=== PATIENT | female | born 1995 | race Caucasian/White ===

== ENCOUNTER 2020-10-18 13:25 | Emergency (ER) | payer SELFPAY ==
[~2020-10-18] VITALS: Ht 160 cm; Wt 63.5 kg
[2020-10-18 13:38] VITALS: BP 118/69
--- NOTE | 2020-10-18 13:38 | NUR ---
PATIENT CAME IN STATING "I have severe abdominal Pain +N/V/D". AOX4, NO SOB NOTED, C/O ACHING ABDOMINAL PAIN 10/10, NO S/O ANY ACUTE DISTRESS NOTED. MAKE COMFORTABLE IN BED. WILL CONTINUE TO MONITOR
--- NOTE | 2020-10-18 13:51 | NUR ---
PIV IN R-wrist G#20, GOOD BLOOD RETURN NOTED, INTACT, PATENT AND FLUSHING WELL. PT TOLERATED WELL. WILL CONTINUE TO MONITOR
--- NOTE | 2020-10-18 13:55 | NUR ---
damion draw and urine send to lab
[2020-10-18] MEDS ORDERED: ONDANSETRON HCL/PF 4 MG/2 ML VIAL ONE (13:59)
[2020-10-18] MEDS ORDERED: ONDANSETRON HCL/PF 4 MG/2 ML VIAL IVP ONE (14:00)
[2020-10-18] MEDS ORDERED: IV NS 0.9% 1,000 ML BAG IV ONE (14:00)
[2020-10-18 14:01] LABS: BASOPHILS % (AUTO) 0.3 % (0.0-2.0); EOSINOPHILS % (AUTO) 0.5 % (0.0-6.0); HEMATOCRIT 36 % (33-45); HEMOGLOBIN 11.8 g/dL (11.5-14.8); LYMPHOCYTES # (AUTO) 1.9 K/uL (0.8-4.8); LYMPHOCYTES % (AUTO) 20.2 % (20.0-44.0); MEAN CORPUSCULAR HGB CONC 32 g/dl (31.0-36.0); MEAN CORPUSCULAR VOLUME 84 fL (82-100); MONOCYTES # (AUTO) 0.6 K/uL (0.1-1.30); MONOCYTES % (AUTO) 6.6 % (2.0-12.0); NEUTROPHILS # (AUTO) 6.6 K/uL (1.8-8.9); NEUTROPHILS % (AUTO) 72.4 % (43.0-81.0); PLATELET COUNT (AUTO) 300 K/uL (150-450); RED BLOOD CELL COUNT(AUTO) 4.34 MIL/uL (4.0-5.2); WHITE BLOOD COUNT (AUTO) 9.2 K/uL (4.3-11.0)
[2020-10-18 14:01] LABS: BILIRUBIN,URINE NEGATIVE (NEGATIVE); COLOR,URINE YELLOW (YELLOW); LEUKOCYTE ESTERASE ,URINE TRACE (NEGATIVE); NITRITE, URINE NEGATIVE (NEGATIVE); PROTEIN,URINE NEGATIVE (NEGATIVE); UGLUCOSE NEGATIVE (NEGATIVE); UROBILINOGEN,URINE 0.2 EU/dL (0.2)
[2020-10-18 14:09] LABS: BACTERIA,URINE 2+ /HPF (None Seen)
[2020-10-18 14:10] LABS: SQUAMOUS EPITHELIAL CELL,UR Many /HPF (None Seen)
[2020-10-18 14:21] LABS: CALCIUM, SERUM 8.6 mg/dL (8.5-10.1); CREATININE 0.6 mg/dL (0.6-1.3); POTASSIUM 3.4 mmol/L (3.5-5.1)
[2020-10-18 14:28] LABS: ALBUMIN 3.3 g/dL (3.4-5.0); BILIRUBIN,DIRECT 0.1 mg/dL (0.0-0.2); BILIRUBIN,TOTAL 0.2 mg/dL (0.2-1.0); TOTAL PROTEIN, SERUM 6.5 g/dL (6.4-8.2)
--- NOTE | 2020-10-18 14:54 | NUR ---
Patient does not wish to proceed with medical care recommended by Dr. Lux. Patient given information related to possible complications, up to and including , which could occur as a result of leaving the hospital at this time. Patient verbalizes understanding of risks involved due to leaving against medical advice but refuses to signed AMA form.
== END 2020-10-18 14:57 | disposition left against medical advice (07) ==
LOC: ER 13:27
DX: N39.0 Urinary tract infection, site not specified (principal); Z76.5 Malingerer [conscious simulation]; Z90.49 Acquired absence of other specified parts of digestive tract; Z88.2 Allergy status to sulfonamides; Z88.8 Allergy status to other drugs, medicaments and biological substances
CPT/HCPCS: 36415; 80048; 80076; 81001; 83690; 84703; 85025; 87086; 96374; 99283; J2405; J7030